=== PATIENT | male | born 1985 | race Caucasian/White ===

== ENCOUNTER 2020-08-04 23:19 | Emergency (ER) | payer SELFPAY ==
--- NOTE | 2020-08-04 23:49 | PHYS DOC ---
Past Medical History Drug Use: Marijuana General Adult EDM: Chief Complaint: CHEST PAIN HPI: HPI: Abner Weinstein is a 35-year-old male who presents with chest pain. He states that he was lying down to go to sleep after taking "1 hit"of marijuana approximately 30 minutes prior to arrival when he felt sudden onset pressure/sharp left-sided chest pain that radiates into the shoulder. He denies nausea/vomiting and diaphoresis. He states that he is had similar symptoms approximately 3 weeks ago when smoking marijuana from the same source. Patient affirms a history of hypertension for which she takes hydrochlorothiazide and lisinopril. Patient affirms a history of anxiety. Patient affirms a history of "heart parasites" that his brother encountered and received medication for following construction underneath his home. He received various home remedies supplements including oregano and olive oil from an unknown source who told him to take 4 times the recommended amount. History and physical limited due to patient leaving AMA prior to completion. Review of Systems: Review of Systems: Constitutional: Denies fever or chills Eyes: Denies redness or eye pain HENT: Denies nasal congestion or sore throat Respiratory: Denies cough or shortness of breath Cardiovascular: Denies palpitations; affirms chest pain GI: Denies abdominal pain, nausea, or vomiting : Denies dysuria or hematuria Musculoskeletal: Denies back pain or joint pain Integument: Denies rash or skin lesions Neurologic: Denies headache, focal weakness or sensory changes; affirms marijuana use Complete systems were reviewed and found to be within normal limits, except as documented in this note. Heart Score: HEART Score for Chest Pain: HEART Score for Chest Pain Response (Comments) Value History Moderately Suspicious 1 ECG Normal 0 Age < 45 0 Risk Factors 1 or 2 Risk Factors 1 Total 2 Risk Factors: Risk Factors: DM, Current or recent (<one month) smoker, HTN, HLP, family history of CAD, obesity. Risk Scores: Score 0 - 3: 2.5% MACE over next 6 weeks - Discharge Home Score 4 - 6: 20.3% MACE over next 6 weeks - Admit for Clinical Observation Score 7 - 10: 72.7% MACE over next 6 weeks - Early Invasive Strategies Physical Exam: PE: Constitutional: Well developed, well nourished, mild acute distress, non-toxic appearance, patient admits to marijuana use prior to encounter HENT: Normocephalic, atraumatic Eyes: PERRL, EOMI, conjunctiva normal, no discharge Neck: Normal range of motion, no tenderness, supple Lungs & Thorax: No respiratory distress, equal chest rise and fall, clear to all station bilaterally Cardiac: Tachycardic but regular rhythm, no murmur, radial pulse 2+ bilaterally Abdomen: Soft, no tenderness Skin: Warm, dry, no erythema, no rash Back: No tenderness, no CVA tenderness Extremities: No tenderness, ROM intact, no lower extremity edema Neurologic: Alert and oriented X 3, normal motor function, normal sensory function, no focal deficits noted Psychologic: Affect anxious, judgment mostly normal Physical exam limited due to patient leaving AMA prior to completion. EKG: EKG: @2324 Sinus tachycardia at [address] elevation or depression Normal T wave morphology Somewhat depressed Q waves in leads II, III and aVF J-point elevation in leads V2 and V3 QRS 102 ms QT 322 ms QTc 454 ms Course & Med Decision Making: Course & Med Decision Making Patient arrives with chest pain as described above. Staff was quick to room the patient after significant concern expressed at registration. Patient's history is moderately concerning for ACS, and EKG was promptly performed. EKG revealed no signs of myocardial ischemia. After ensuring the patient that his complaint is likely not due to myocardial infarction, patient began to remove EKG and monitoring equipment stating that "unless I am having a heart attack I do not want to be here". Discussed with patient that although myocardial infarction is unlikely, further tests are likely warranted given his complaint but that if he wants to sign AGAINST MEDICAL ADVICE he is free to do so. Patient was compliant with signing AMA and states that he will find further treatment for his hypertension tomorrow. Had lengthy discussion with patient regarding marijuana use and the various substances that can be mixed with marijuana producing poor outcomes. Patient understands and states that he is going to throw away his current batch. Reyna Disclaimer: Reyna Disclaimer: This electronic medical record was generated, in whole or in part, using a voice recognition dictation system. ALIX COE DO Aug 04, 2020 23:49
== END 2020-08-04 23:41 | disposition left against medical advice (07) ==
LOC: ER 23:19
DX: R07.89 Other chest pain (principal); F12.90 Cannabis use, unspecified, uncomplicated; I10 Essential (primary) hypertension; F41.9 Anxiety disorder, unspecified
CPT/HCPCS: 99281